=== PATIENT | female | born 1970 | race Caucasian/White ===

== ENCOUNTER → 2016-11-06 | Outpatient (CLI) | payer BC ==
[~2016-11-06] VITALS: Ht 167.6 cm; Wt 95.3 kg
[~2016-11-06] MED LIST: CITA10TA7 PO; HYDR-3812 PO; LIDOCAINE 1% INJ 20 ML (XYLOCAINE) VIAL ONE; LIDOCAINE/EPI 1%-1:100,000 (XYLOCAINE) 20ML ONE; MULT-974 PO; SIMV20TA3 PO
[2016-11-06 09:42] VITALS: BP 173/77
[2016-11-06 10:34] VITALS: BP 139/84
--- NOTE | 2016-11-06 14:32 | Diagnostic Imaging Report ---
EXAMINATION: Vacuum-assisted stereotactic breast biopsy , with clip placement, and specimen radiographs. INDICATION: Left breast mass . CONSENT: Informed consent was obtained from the patient. The risks, benefits, potential complications and alternatives were reviewed and all questions answered to the patient's satisfaction. PROCEDURE: The patient is positioned on the stereotactic procedure table prone. Prior mammograms were reviewed and based on the position of the mass, the appropriate the approach is selected. Initial stereotactic mammographic views at -15 and +15 degrees where performed and confirmation of localization of the lesion is performed. The localization is performed with the stereotactic software assistance and confirmed visually to match the area of interest. After satisfactory localization with initial stereotactic mammographic images, the biopsy tract approach is selected from superior to inferior with the skin site determined. After sterile preparation and draping, 1% lidocaine was utilized for local anesthesia. After confirming the targeted mass along the left breast, multiple vacuum-assisted stereotactic biopsies, with 8-gauge core needles, were performed. The specimen radiograph demonstrates nodule segments. Subsequently, a marking clip was placed at the site of the biopsy. Subsequently the patient was moved from the stereotactic unit and to the separate dedicated mammography unit to perform the mammogram. This mammogram is performed and confirms proper positioning of the clip. The patient tolerated the procedure well with no immediate complications. IMPRESSION: Successful stereotactic vacuum-assisted left breast biopsy for mass along the central upper aspect. A marking clip was left in place. The specimen radiograph demonstrates the nodule fragments. Dictated by: Dictated on workstation # [id number]
== END ==
LOC: RAD 09:34
PROVIDERS: ATTEND Surgery
DX: D24.2 Benign neoplasm of left breast (principal)
CPT/HCPCS: 19081

== ENCOUNTER 2016-11-25 05:39 | Outpatient (CLI) | payer BC ==
[~2016-11-25] VITALS: Ht 157.5 cm; Wt 86.2 kg
[2016-11-25] MEDS ORDERED: SIMV20TA3 PO (10:12)
[2016-11-25] MEDS ORDERED: CITA10TA7 PO (10:12)
[2016-11-25] MEDS ORDERED: MULT-974 PO (10:12)
[2016-11-27] MEDS ORDERED: HYDR-3812 PO (11:21)
== END 2016-11-25 10:14 ==
LOC: PREOP 05:39
PROVIDERS: ATTEND Surgery
DX: Z01.818 Encounter for other preprocedural examination (principal); N63 Unspecified lump in breast

== ENCOUNTER 2016-11-27 07:04 | Day surgery (SDC) | payer BC ==
[~2016-11-27] VITALS: Ht 157.5 cm; Wt 86.2 kg
[~2016-11-27 07:04] MED LIST changes: -HYDR-3812 PO; -LIDOCAINE 1% INJ 20 ML (XYLOCAINE) VIAL ONE; -LIDOCAINE/EPI 1%-1:100,000 (XYLOCAINE) 20ML ONE
--- OUTSIDE RECORDS SUMMARY | 2016-11-27 07:08 | XMS REPORT | Continuity of Care Document ---
Author Author [facility] Organization [facility] Address Unknown Phone Unavailable Care Team Providers Care Braiding Operator Name Role Phone RADHA DANIELS MD PCP Insurance Providers Payer Name Policy Number Subscriber Name Relationship [facility] [id number] Luís Penny Advance Directives Directive Response Recorded Date/Time Advance Directives No 11/06/16 9:42am Health Care Power of Station Detective No 11/06/16 9:42am Organ Donor Yes 11/06/16 9:42am Resuscitation Status Full Code 11/25/16 10:06am Problems No problem information available. Medications Current Home Medications Medication Dose Units Route Directions Days/Qty Instructions Start Date Multivitamin 1 Each 1 Each Oral Daily 11/25/16 Citalopram Hydrobromide 10 Mg 10 Mg Oral Daily 11/25/16 Simvastatin 20 Mg 20 Mg Oral Bedtime 11/25/16 Social History Social History Problem Response Recorded Date/Time Alcohol Use Rarely Uses 11/25/2016 10:06am Recreational Drug Use No 11/25/2016 10:06am Recent Foreign Travel No 11/25/2016 10:06am Recent Infectious Disease Exposure No 11/25/2016 10:06am Smoking Status Never a Smoker 11/25/2016 10:06am Recent Hopitalizations No 11/25/2016 10:06am Query Response Start Date Stop Date Smoking Status Never a Smoker Hospital Discharge Instructions No hospital discharge instructions. Plan of Care Discharge Date 11/25/16 10:14am Prescriptions See Medication Section Functional Status No functional status results. Allergies, Adverse Reactions, Alerts No known allergies. Immunizations No immunization records. Vital Signs Acute Vital Signs Vital Response Date/Time Pulse Rate (adult) 72 bpm (60 - 90) 11/06/2016 10:34am Respiratory Rate 18 bpm (12 - 24) 11/06/2016 10:34am O2 Sat by Pulse Oximetry 100 % (88 - 100) 11/06/2016 10:34am Blood Pressure 139/84 mm Hg 11/06/2016 10:34am Blood Pressure Mean 109 mm Hg 11/06/2016 9:42am Pain Numeric Pain Scale 0-No Pain 11/06/2016 10:34am Height (Feet) 5 feet 11/25/2016 10:04am Height (Inches) 2.00 inches 11/25/2016 10:04am Height (Calculated Centimeters) 157.281223 cm 11/25/2016 10:04am Weight (Pounds) 190 pounds 11/25/2016 10:04am Weight (Ounces) 0.0 oz 11/25/2016 10:04am Weight (Calculated Grams) 52538.55 gm 11/25/2016 10:04am Weight (Calculated Kilograms) 86.969133 kilograms 11/25/2016 10:04am Calculated BMI 34.8 11/25/2016 10:04am Results No known relevant diagnostic tests, laboratory data and/or discharge summary. Procedures No known history of procedures. Encounters Encounter Location Arrival/Admit Date Discharge/Depart Date Attending Provider Departed Clinic [facility] 11/25/16 5:39am 11/25/16 10: 14am DEJA MCKEON MD Registered Clinic [facility] 11/06/16 9:34am DEJA MCKEON MD Registered Clinic [facility] 10/30/16 7:55am WICHO CASTELLANOS MD
--- OUTSIDE RECORDS SUMMARY | 2016-11-27 07:08 | XMS REPORT | Continuity of Care Document ---
Author Author [facility] Organization [facility] Address Unknown Phone Unavailable Care Team Providers Care Housekeeping Aid Name Role Phone RADHA DANIELS MD PCP Insurance Providers Payer Name Policy Number Subscriber Name Relationship [facility] [id number] Luís Penny Advance Directives Directive Response Recorded Date/Time Advance Directives No 11/06/16 9:42am Health Care Power of Multiple Knife Edge Trimmer Operator No 11/06/16 9:42am Organ Donor Yes 11/06/16 [...] 2.00 inches 11/25/2016 10:04am Height (Calculated Centimeters) 157.618204 cm 11/25/2016 10:04am Weight (Pounds) 190 pounds 11/25/2016 10:04am Weight (Ounces) 0.0 oz 11/25/2016 10:04am Weight (Calculated Grams) 08214.55 gm 11/25/2016 10:04am Weight (Calculated Kilograms) 86.591258 kilograms 11/25/2016 10:04am Calculated BMI 34.8 11/25/2016 10:04am Results No known relevant diagnostic tests, laboratory data and/or discharge summary. Procedures No known history of procedures. Encounters Encounter Location Arrival/Admit Date Discharge/Depart Date Attending Provider Departed Clinic [facility] 11/25/16 5:39am 11/25/16 10: 14am DEJA MCKEON MD Registered Clinic [facility] 11/06/16 9:34am DEJA MCKEON MD Registered Clinic [facility] 10/30/16 7:55am WICHO CASTELLANOS MD
[2016-11-27] MEDS ORDERED: LACTATED RINGERS 1,000 ML IV PRN (07:20)
[2016-11-27] MEDS ORDERED: LIDOCAINE 1% INJ 20 ML (XYLOCAINE) VIAL ONE (07:26)
[2016-11-27] MEDS ORDERED: ceFAZolin 1,000 MG (ANCEF) VIAL ONE (07:27)
[2016-11-27] MEDS ORDERED: NORMAL SALINE (BAXTER MINI) 50 ML IV ONE (07:27)
--- NOTE | 2016-11-27 07:51 | Progress Note-Pre Operative ---
Pre-Operative Progress Note H&P Reviewed The H&P was reviewed, patient examined and no changes noted. Date H&P Reviewed: Nov 27, 2016 Time H&P Reviewed: 07:50 Pre-Operative Diagnosis: Left breast lump DEJA MCKEON MD Nov 27, 2016 07:51
[2016-11-27 08:02] VITALS: BP 116/86
[2016-11-27] MEDS ORDERED: ceFAZolin 1 GM/NS 50 ML IVPB IV ONE ×2 (09:00)
[2016-11-27] MEDS ORDERED: SEVOFLURANE (ULTANE) 15 ML INHAL SOLN ONE ×2 (09:34→11:19)
[2016-11-27] MEDS ORDERED: proPOfol 200 MG/20 ML (DIPRIVAN) VIAL IV ONE (09:34)
[2016-11-27] MEDS ORDERED: LACTATED RINGERS 1,000 ML IV ONE (09:34)
[2016-11-27] MEDS ORDERED: ONDANSETRON 4 MG/2 ML (SDV) Z0FRAN ONE (09:34)
[2016-11-27] MEDS ORDERED: LIDOCAINE PF 2% 10 ML (XYLOCAINE) AMP ONE (09:34)
[2016-11-27] MEDS ORDERED: MIDAZOLAM 2 MG/2 ML (VERSED) VIAL ONE (09:35)
[2016-11-27] MEDS ORDERED: fentaNYL INJECTION 100 MCG/2 ML AMP ONE (09:35)
--- NOTE | 2016-11-27 11:20 | Progress Note-Post Operative ---
Post-Operative Progess Note Pre-Operative Diagnosis LEFT BREAST LUMP Post-Operative Diagnosis Same Post-Op Procedure Note Date of Procedure: Nov 27, 2016 Name of Procedure: Needle localized excision of left breast lump Anesthesia Type Gen. Estimated blood loss (mL): Minimal Specimen(s) collected Left breast lump DEJA MCKEON MD Nov 27, 2016 11:20 am
[2016-11-27] MEDS ORDERED: HYDR-3812 PO (11:21)
--- NOTE | 2016-11-27 11:22 | Discharge Inst-Simple/Standard ---
Discharge Inst-Standard Discharge Medications New, Converted or Re-Newed RX: RX on Chart Patient Instructions/Follow Up Plan of Care/Instructions/FU: Dressings off in 48 hours. Follow-up when necessary. No sutures to be removed Activity as Tolerated: Yes Discharge Diet: No Restrictions DEJA MCKEON MD Nov 27, 2016 11:22 am
[2016-11-27] MEDS ORDERED: BUP/EPI 0.25% 1:200,000 (MARCAINE) 30 ML VIAL ONE (11:23)
[2016-11-27] MEDS ORDERED: morphine INJ 10 MG/ML 1ML (SYR OR VIAL) IV PRN (11:30)
[2016-11-27] MEDS ORDERED: PROMETHAZINE INJ 25 MG/ML (PHENERGAN) AMP IV PRN (11:30)
[2016-11-27] MEDS ORDERED: ONDANSETRON 4 MG/2 ML (SDV) Z0FRAN IV PRN (11:30)
[2016-11-27 12:25] VITALS: BP 121/71
[2016-11-27 12:55] VITALS: BP 116/83
[2016-11-27 13:25] VITALS: BP 118/86
--- NOTE | 2016-11-27 15:14 | OPERATIVE REPORT ---
PROCEDURE PHYSICIAN: DEJA MCKEON DATE OF PROCEDURE: 11/27/2016 PREOPERATIVE DIAGNOSIS: Fibroadenoma left breast. POSTOPERATIVE DIAGNOSIS: Fibroadenoma left breast. OPERATION: Needle localized excision of fibroadenoma left breast. SURGEON: Wally ANESTHESIA: General anesthesia. BLOOD LOSS: Minimal. FLUIDS: 700 mL of crystalloids. TYPE OF WOUND: Type I (clean wound). INDICATION FOR THE PROCEDURE: This lady was found to have an 1.5 cm lump over the left retroareolar region of the breast on a screening mammography. Stereotactic biopsy revealed changes of fibroadenoma. It was felt reasonable to achieve complete excision of the lump using needle localized technique. Informed consent was obtained after reviewing the operative details and complications of postoperative hematoma, and wound infection. Following her admission to the outpatient surgery area, she was taken to the radiology department and the lump localized using a hook wire placed by the radiologist. Subsequently, she was brought to the operating room and general anesthesia induced. Prophylactic antibiotics were administered intravenously. Left breast was prepared and draped in the usual sterile manner. Preemptive analgesia was established using 0.25% Marcaine with epinephrine. A 3 cm incision was made over the superior aspect of the left breast, centered on the hookwire. Breast tissue surrounding the wire was excised down to the index lesion. The specimen was then sent for conventional mammogram and the lesion, along with the clip within the specimen itself were confirmed to be with tissue. The tissue was then sent for histologic examination. Hemostasis was achieved using cautery and the incision closed using 3-0 Vicryl for the subcutaneous tissue and 4-0 Vicryl for skin, in a subcuticular fashion. She tolerated the procedure well, was extubated in the operating room and taken to the recovery room in a stable condition. Mccleary, sponges, and instruments were correct the end of the operation. Job ID: [id number] Dictated Date: 11/27/2016 11:19:42 Locomotive Boilermaker Date: 11/27/2016 15:07:29 / gael ORO
--- NOTE | 2016-11-27 17:51 | Diagnostic Imaging Report ---
INDICATION: Fibroadenoma. EXAMINATION: Digit left breast specimen. FINDINGS: A single specimen from the left breast was received from the OR. The specimen contains both the stereotactic clip and the localization were. This would indicate that the area in question has been adequately sampled. IMPRESSION: It does appear that the area in question has been adequately sampled. Correlation with the patient's pathology results would be recommended. Dictated by: Dictated on workstation # [id number]
--- NOTE | 2016-11-27 18:03 | Diagnostic Imaging Report ---
INDICATION: Left breast mass. EXAMINATION: Stereotactic needle localization, left breast. The left breast ultrasound exam performed on 10/30/16 noted an indeterminate solid mass in the retroareolar region of the breast. This mass was subsequently biopsied on 11/06/16 and a clip was placed in the biopsy site. Subsequently, a diagnosis of fibroadenoma was established. The patient presents today for excision of the lesion and the clip. PROCEDURE: Following aseptic preparation of the skin and administration of local anesthesia, a 7.5 cm Kopans needle was inserted approximately 6-7 cm into the left breast through the superior margin of the left breast. The tip of the needle was placed in close proximity to the clip. The patient tolerated the procedure well and was sent to the OR in good condition. IMPRESSION: 1. There has been successful stereotactic localization of the clip in the left breast. A specimen radiograph would be recommended. 2. These results were conveyed to Dr. Lo. Dictated by: Dictated on workstation # [id number]
== END 2016-11-27 13:33 | disposition home or self-care (01) ==
LOC: SDC 07:04
PROVIDERS: ATTEND Surgery
DX: D24.2 Benign neoplasm of left breast (principal); Z11.2 Encounter for screening for other bacterial diseases
CPT/HCPCS: 76098; 84703; 87081; 88305

== ENCOUNTER → 2018-01-16 | Outpatient (CLI) | payer BC ==
[~2018-01-16] MED LIST changes: +ACHD5005 PO
--- NOTE | 2018-01-16 18:01 | Diagnostic Imaging Report ---
EXAMINATION: Digital mammogram bilateral screening. INDICATION: Screening. COMPARISON: This study was compared to the prior exams of 11/06/2016 and 10/23/2016. At this time, there are no current complaints. The current study was also evaluated with a Computer Aided Detection (CAD) system. FINDINGS: The fibroglandular tissue in both breasts is heterogeneously dense. This does limit the sensitivity of this exam. The previous exam of the left breast did show a 1.2 cm lobulated circumscribed mass in the mid portion of the left breast. This was subsequently biopsied and proved to be a fibroadenoma. On this exam, the scar formation in the biopsy site is again evident. The stereotactic clip within the biopsy site seen on the prior exam is no longer visualized. The overall appearance of the breasts has not changed significantly otherwise. There is no primary or secondary sign of malignancy noted. IMPRESSION: 1. The postsurgical changes involving the left breast seen previously are again evident. There is no evidence of malignancy. 2. The patient should have her annual bilateral screening mammogram on schedule in January of 2019. ACR BI-RADS Category 1: Negative. Result letter will be mailed to the patient. Note: At least 10% of breast cancer is not imaged by mammography. Dictated by: Dictated on workstation # [id number]
== END ==
LOC: RAD 07:53
PROVIDERS: ATTEND Obstetrics & Gynecology
DX: Z12.31 Encounter for screening mammogram for malignant neoplasm of breast (principal); Z98.890 Other specified postprocedural states
CPT/HCPCS: 77067

== ENCOUNTER 2018-01-20 13:00 | Outpatient (CLI) | payer BC ==
[~2018-01-20] VITALS: Ht 157.5 cm; Wt 86.2 kg
== END 2018-01-20 13:14 ==
LOC: PREOP 13:00
PROVIDERS: ATTEND Surgery
DX: Z01.818 Encounter for other preprocedural examination (principal); Z12.11 Encounter for screening for malignant neoplasm of colon; K21.9 Gastro-esophageal reflux disease without esophagitis

== ENCOUNTER 2018-01-26 08:51 | Day surgery (SDC) | payer BC ==
[~2018-01-26] VITALS: Ht 157.5 cm; Wt 86.2 kg
[2018-01-26] MEDS ORDERED: NS IV 500 ML 500 ML IV ONE (09:15)
[2018-01-26 09:30] VITALS: BP 123/74
[2018-01-26] MEDS ORDERED: fentaNYL INJECTION 100 MCG/2 ML AMP ONE ×2 (10:21)
[2018-01-26] MEDS ORDERED: MIDAZOLAM 2 MG/2 ML (VERSED) VIAL ONE ×5 (10:21→10:22)
[2018-01-26] MEDS ORDERED: HURRICAINE EXT TUBE (BENZOCAINE) ONE (10:22)
[2018-01-26] MEDS: fentaNYL INJECTION 100 MCG/2 ML AMP IVP PRN ×4 (10:45→10:59)
--- NOTE | 2018-01-26 10:45 | Conscious Sedation/ASA ---
Conscious Sedation Pre-Proced Time Reviewed: 10:45 ASA Class: 2 Airway Mallampati Classification: (mary's igloo appropriate class) I. II. III, IV Lungs Heart ASA score ASA 1: a normal healthy patient ASA 2: a patient with a mild systemic disease (mid diabetes, controlled hypertension, obesity ASA 3: a patient with a severe systemic disease that limits activity (angina , COPD, prior Myocardial infarction) ASA 4: a patient with an incapacitating disease that is a constant threat to life (CHF, renal failure) ASA 5: a moribund patient not expected to survive 24 hrs. (ruptured aneurysm) ASA 6: a declared brain patient whose organs are being harvested. For emergent operations, add the letter E after the classification Grade 1 Sedation Plan: Discussed options with patient/fam Note The patient is an appropriate candidate to undergo the planned procedure, sedation, and anesthesia. The patient immediately re-assessed prior to indication. DEJA MCKEON MD Jan 26, 2018 10:45 am
--- NOTE | 2018-01-26 10:45 | History & Physicial ---
History of Present Illness History of Present Illness Reason for visit/HPI to undergo an upper endoscopy regarding symptoms of GERD and concomitant colonoscopy, to investigate a change in her bowel habits Date of Admission 01/26/18 Date Seen by Provider: Jan 26, 2018 Time Seen by Provider: 10:44 I consulted on this patient on 01/26/18 10:43 Attending Physician Deja Mckeon MD Admitting Physician Severino Gunderson MD Consult Allergies and Home Medications Allergies Coded Allergies: No Known Drug Allergies (Unverified , 11/25/16) Home Medications Citalopram Hydrobromide 10 Mg Tablet, 10 MG PO DAILY, (Reported) Multivitamin 1 Each Tablet, 1 EACH PO DAILY, (Reported) Simvastatin 20 Mg Tablet, 20 MG PO HS, (Reported) Patient Home Medication List Home Medication List Reviewed: Yes Past Xzunfxk-Lahdgx-Dtjpda Hx Patient Social History Marrital Status: Employed/Student: employed Recent Foreign Travel: No Contact w/other who traveled: No Recent Hopitalizations: No Immunizations Up To Date Tetanus Booster (TDap): Unknown Seasonal Allergies Seasonal Allergies: No Neurological Yes Headaches /Migraines Gastrointestinal Gastroesophageal Reflux HEENT Loss of Vision: Bilateral Hearing Impairment: Denies Psychosocial Behavioral Health Disorders: Depression Integumentary Skin/Integumentary Disorders: Recent Skin Changes Constitutional: no symptoms reported EENTM: no symptoms reported Cardiovascular: no symptoms reported Gastrointestinal: see HPI Genitourinary: no symptoms reported Musculoskeletal: no symptoms reported Skin: no symptoms reported Psychiatric/Neurological: No Symptoms Reported Physical Exam Vital Signs Capillary Refill : General Appearance: No Apparent Distress Neck: Normal Inspection Respiratory: Lungs Clear Cardiovascular: Regular Rate, Rhythm Gastrointestinal: Non Tender, Soft Rectal: Deferred Extremity: Normal Inspection Neurologic/Psychiatric: Alert, Oriented x3 Skin: Warm/Dry Assessment/Plan Assessment and Plan lady with symptoms of gastroesophageal reflux and reporting a change in her bowel habits. For EGD with concomitant colonoscopy. Problems: Admission Diagnosis Admission Status: Other (Outpt Proc) DEJA MCKEON MD Jan 26, 2018 10:45 am
[2018-01-26] MEDS: MIDAZOLAM 2 MG/2 ML (VERSED) VIAL IVP PRN ×3 (10:46→10:55)
--- NOTE | 2018-01-26 11:06 | Endo Procedure Record ---
Endo Procedure Report Date of Procedure Last Colonoscopy: No Jan 26, 2018 Surgeon (s) DEJA MCKEON MD Post Procedure/Op Diagnosis EGD: Distal gastric ulcers Normal colonoscopy Procedure Performed EGD with antral biopsy Colonoscopy to cecum Description of Procedure Anesthesia Type: Conscious Sedation Specimen(s) collected/removed antral mucosa for H. pylori Description of the Procedure indication for the procedures: This lady came in for an upper endoscopy to evaluate symptoms of reflux disease and colonoscopy, to investigate a change in her bowel habits. Informed consent was obtained after reviewing the procedures in detail. Description of the procedures: EGD/antral biopsy: She was placed in left lateral decubitus position and her vital signs were monitored. Conscious sedation was achieved using Versed and fentanyl. The flexible gastroscope was introduced down the esophagus, past the stomach, into the proximal duodenum. Findings: Esophagus: An uncomplicated hiatal hernia. Stomach: Multiple distal gastric ulcers and erosions were found. Biopsy for H. pylori was obtained. Duodenum: Normal She tolerated the procedure well and was turned around in preparation for colonoscopy. Impression: Symptoms of reflux disease. Multiple gastric ulcers. Helicobacter status pending. Colonoscopy: Digital rectal examination was unremarkable. The colonoscope was then introduced into the rectum and advanced all the way up to the cecum The scope was then withdrawn slowly and the mucosa examined in a systematic fashion. There was no abnormality. She tolerated the procedures well and was taken back to the nursing area in a stable condition. Impression: Change in bowel habits. Normal colonoscopy. Recommend screening colonoscopy in 10 years Copies To: RADHA DANIELS MD, XAVIER M MD Jan 26, 2018 11:06 am
[2018-01-26] MEDS ORDERED: PANT40TA2 PO (11:07)
--- NOTE | 2018-01-26 11:08 | Discharge Inst-Simple/Standard ---
Discharge Inst-Standard Discharge Medications New, Converted or Re-Newed RX: RX on Chart Patient Instructions/Follow Up Plan of Care/Instructions/FU: Follow-up with her primary. Screening colonoscopy in 10 years Activity as Tolerated: Yes Discharge Diet: No Restrictions DEJA MCKEON MD Jan 26, 2018 11:08 am
[2018-01-26] MEDS ORDERED: HURRICAINE EXT TUBE (BENZOCAINE) XX ONE (11:30)
[2018-01-26 11:35] VITALS: BP_SYST 112; BP_SYST 116; BP_DIAS 69; BP_DIAS 70
[2018-01-26 12:55] VITALS: BP 116/69
== END 2018-01-26 13:00 | disposition home or self-care (01) ==
LOC: ENDO 08:51
PROVIDERS: ATTEND Surgery
DX: K25.9 Gastric ulcer, unspecified as acute or chronic, without hemorrhage or perforation (principal); R19.4 Change in bowel habit; F32.9 Major depressive disorder, single episode, unspecified; Z79.899 Other long term (current) drug therapy
CPT/HCPCS: 84703

== ENCOUNTER → 2018-03-24 | Outpatient (CLI) | payer BC ==
[~2018-03-24] MED LIST changes: +CATHETER FLUSH 10 ML SYR IV PRN; +PANT40TA2 PO
[2018-03-24 08:11] LABS: BASOPHILS % (AUTO) 0 % (0-10); EOSINOPHILS # (AUTO) 0.2 10^3/uL (0.0-0.3); EOSINOPHILS % (AUTO) 2 % (0-10); HEMATOCRIT 40 % (35-52); HEMOGLOBIN 13.2 G/DL (11.5-16.0); LYMPHOCYTES # (AUTO) 1.8 X 10^3 (1.0-4.0); LYMPHOCYTES % (AUTO) 20 % (12-44); MEAN CORPUSCULAR HEMOGLOBIN 30 PG (25-34); MEAN CORPUSCULAR HGB CONC 33 G/DL (32-36); MEAN CORPUSCULAR VOLUME 89 FL (80-99); MEAN PLATELET VOLUME 10.3 FL (7.4-10.4); MONOCYTES % (AUTO) 11 % (0-12); NEUTROPHILS # (AUTO) 6.2 X 10^3 (1.8-7.8); NEUTROPHILS % (AUTO) 68 % (42-75); PLATELET COUNT 241 10^3/uL (130-400); RED BLOOD COUNT 4.48 10^6/uL (4.35-5.85); RED CELL DISTRIBUTION WIDTH 13.6 % (10.0-14.5); WHITE BLOOD COUNT 9.2 10^3/uL (4.3-11.0)
[2018-03-24 08:36] LABS: ALANINE AMINOTRANSFERASE 29 U/L (0-55); ALBUMIN 4.1 GM/DL (3.2-4.5); ALKALINE PHOSPHATASE 55 U/L (40-136); BILIRUBIN,TOTAL 0.4 MG/DL (0.1-1.0); BUN/CREATININE RATIO 23; CALCIUM 9.3 MG/DL (8.5-10.1); CARBON DIOXIDE 25 MMOL/L (21-32); CHLORIDE 105 MMOL/L (98-107); CHOLESTEROL 183 MG/DL (< 200); CREATININE SERUM 0.77 MG/DL (0.60-1.30); GFR ESTIMATED > 60; GLUCOSE 108 MG/DL (70-105); HDL CHOLESTEROL 39 MG/DL (40-60); MAGNESIUM 1.9 MG/DL (1.8-2.4); POTASSIUM 4.5 MMOL/L (3.6-5.0); SODIUM 139 MMOL/L (135-145); TRIGLYCERIDES 108 MG/DL (<150); VLDL CHOLESTEROL 22 MG/DL (5-40)
[2018-03-24 09:16] VITALS: BP 134/75
[2018-03-24 09:18] LABS: ERYTHROCYTE SEDIMENTATION RATE 28 MM/HR (0-20)
[2018-03-24 09:28] VITALS: BP 185/56
--- NOTE | 2018-03-25 09:24 | STRESS TEST ---
DATE OF SERVICE: 03/24/2018 PROCEDURE: Resting and post exercise technetium-99m Tetrofosmin SPECT CT imaging. ORDERING PHYSICIAN: Dr. Haq. PRIMARY CARE PHYSICIAN: CL Small CLINICAL DIAGNOSES: Chest discomfort and shortness of breath. Baseline images were carried out after injection of 10.43 mCi of technetium-99m Tetrofosmin. This was followed by exercise on a treadmill. Kyler protocol was employed. Heart rate response to exercise was normal. Blood pressure response to exercise was somewhat hypertensive. There did not appear to be significant ST segment deviation with exercise. There was approximately [address] segment depression at peak exercise and in the recovery phase. After the patient had attained 85% of maximum predicted heart rate, 29.3 mCi of technetium-99m Tetrofosmin were injected and the exercise was continued for another minute. The test was stopped on account of fatigue. The patient attained 96% of maximum predicted heart rate and 9.5 METS of workload. Heart rate and blood pressure product was [address]. Review of images at rest and following stress does not indicate any significant perfusion defects consistent with significant myocardial ischemia or infarction. Gated images show normal global left ventricular systolic function with normal regional wall motion. Left ventricular ejection fraction is calculated to be 69%. Left ventricular end diastolic volume is 46 mL. TID is absent (0.85). CONCLUSIONS: 1. No evidence of any significant myocardial ischemia or infarction on this study. 2. Normal regional wall motion. 3. Normal global left ventricular systolic function with a calculated ejection fraction of 69%. Job ID: [id number] DocumentID: [id number] Dictated Date: 03/25/2018 08:28:56 Cuff Setter Date: 03/25/2018 09:23:39 Dictated By: CALEB HAQ MD, MA, FACP, FACC,
== END ==
LOC: CARD 07:53
PROVIDERS: ATTEND Internal Medicine Cardiovascular Disease
DX: E78.4 Other hyperlipidemia (principal); R07.89 Other chest pain; R06.02 Shortness of breath
CPT/HCPCS: 36415; 78452; 80053; 80061; 83735; 84443; 85025; 85652; 93017

== ENCOUNTER → 2018-03-25 | Outpatient (CLI) | payer BC ==
[~2018-03-25] MED LIST changes: -CATHETER FLUSH 10 ML SYR IV PRN; +RT-ALBUTEROL SULF 2.5 MG/3 ML PRE-MIX VIAL INH ONE; +RT-ALBUTEROL SULF 2.5 MG/3 ML PRE-MIX VIAL ONE
== END ==
LOC: RT 15:54
PROVIDERS: ATTEND Internal Medicine Cardiovascular Disease
DX: R07.89 Other chest pain (principal); R06.02 Shortness of breath; E78.4 Other hyperlipidemia
CPT/HCPCS: 94060; 94726; 94729

== ENCOUNTER → 2018-04-15 | Outpatient (CLI) | payer BC ==
[~2018-04-15] MED LIST changes: -RT-ALBUTEROL SULF 2.5 MG/3 ML PRE-MIX VIAL INH ONE; -RT-ALBUTEROL SULF 2.5 MG/3 ML PRE-MIX VIAL ONE
== END ==
LOC: CARD 14:08
PROVIDERS: ATTEND Internal Medicine Cardiovascular Disease
DX: R07.89 Other chest pain (principal); R06.02 Shortness of breath; E78.4 Other hyperlipidemia
CPT/HCPCS: 93306

== ENCOUNTER → 2022-02-26 | Outpatient (CLI) | payer BC ==
[~2022-02-26] MED LIST changes: -CITA10TA7 PO; +CITA10TA9 PO; +SIMV20TA26 PO; -SIMV20TA3 PO
--- NOTE | 2022-02-27 22:13 | Diagnostic Imaging Report ---
INDICATION: Routine screening. COMPARISON: Prior mammograms from 01/16/2018 and 10/23/2016. EXAMINATION: 2D and 3D bilateral screening mammography was performed with CAD. FINDINGS: Scattered fibroglandular densities are identified, bilaterally. Post biopsy changes in the left breast appear stable. No dominant mass or malignant-appearing microcalcifications are seen. Axillae are unremarkable. IMPRESSION: No mammographic features suspicious for malignancy are identified. ACR BI-RADS Category 2: Benign findings. Result letter will be mailed to the patient. Note: At least 10% of breast cancer is not imaged by mammography. Dictated by: Dictated on workstation # [id number]
== END ==
LOC: RAD 15:45
PROVIDERS: ATTEND Obstetrics & Gynecology
DX: Z12.31 Encounter for screening mammogram for malignant neoplasm of breast (principal)
CPT/HCPCS: 77063; 77067